=== PATIENT | female | born 1940 | race Caucasian/White ===

== ENCOUNTER → 2018-06-04 | Outpatient (CLI) | payer MEDICARE ==
[~2018-06-04] MED LIST: ALEN70TA47 PO; BACL10TA PO; CALC-911 PO; CETI10TA57 PO; DIATR MEGLU/DIATRIZOATE SODIUM 30 ML BOTTLE ONE; FURO40TA5 PO; GUAI600T50 PO; HYDR-4064 PO; IOHEXOL-350 75 ML VIAL IV ONE; LACT1CAP58 PO; LEVO25TA54 PO; LEVO500T2 PO; LOSA25TA16 PO; MORP15TA PO; MULT-1192 PO; OXYB5TAB PO; POLY119P8 PO; PRED20TA3 PO; TOPI100T37 PO
== END | disposition home or self-care (01) ==
LOC: RAH 10:59
PROVIDERS: ATTEND Family Medicine
DX: M47.895 Other spondylosis, thoracolumbar region (principal); R16.0 Hepatomegaly, not elsewhere classified; J44.9 Chronic obstructive pulmonary disease, unspecified; I70.90 Unspecified atherosclerosis
CPT/HCPCS: 74176; Q9963; Q9967